=== PATIENT | female | born 1945 | race Caucasian/White ===

== ENCOUNTER → 2017-03-11 | Outpatient (REF) | payer MEDICARE ==
[2017-03-11 16:39] LABS: ALBUMIN/GLOBULIN RATIO 1.29 (1.00-1.93); ALKALINE PHOSPHATASE 76 U/L (45-117); ALT/SGPT 24 U/L (12-78); ANION GAP 7 MEQ/L (8-16); AST/SGOT 15 U/L (15-37); BILIRUBIN,TOTAL 0.5 MG/DL (0.2-1.0); BLOOD UREA NITROGEN 16 MG/DL (7-18); CARBON DIOXIDE LEVEL 29 MEQ/L (21-32); CHLORIDE LEVEL 103 MEQ/L (98-107); CHOLESTEROL LEVEL 194 MG/DL (<200); CREATININE FOR GFR 0.97 MG/DL (0.55-1.02); GLOMERULAR FILTRATION RATE > 60.0 (>39); GLUCOSE, FASTING 96 MG/DL (83-110); SODIUM LEVEL 139 MEQ/L (136-145); TOTAL PROTEIN 7.1 GM/DL (6.4-8.2); TRIGLYCERIDES LEVEL 135 MG/DL (<150)
== END ==
LOC: M SFHCLACO 08:16
PROVIDERS: ATTEND Physician Assistant
DX: E78.2 Mixed hyperlipidemia (principal); K21.9 Gastro-esophageal reflux disease without esophagitis; E55.9 Vitamin D deficiency, unspecified

== ENCOUNTER → 2017-04-30 | Outpatient (CLI) | payer MEDICARE ==
--- NOTE | 2017-04-30 12:46 | REPMRS ---
Patient History The patient states she has not had a clinical breast exam in over a year. Patient is postmenopausal and is nulliparous. Family history of breast cancer in sister at age 79, prostate cancer in brother at age 60, and colorectal cancer in brother at age 60. Took hormonal contraceptives for 19 years. Digital Woman Screen Mammo: April 30, 2017 - Exam #: [id number] Bilateral CC and MLO view(s) were taken. Technologist: Raquel Adams, Technologist Prior study comparison: March 31, 2016, digital woman screen mammo performed at [facility]. April 08, 2015, digital woman screen mammo performed at [facility]. May 11, 2013, bilateral bilat screen digital mammo, performed at [facility] ([facility] FINDINGS: There are scattered fibroglandular densities. There has been no change in the appearance of the mammogram from the prior studies. There is a mild amount of scattered fibroglandular density which is fairly symmetric. There is no interval development of dominant mass, architectural distortion, or clustered microcalcification suggestive of malignancy. ASSESSMENT: BI-RADS/ACR category 1 mammogram. Negative. Recommendation Routine screening mammogram in 1 year (for women over age 40). This mammogram was interpreted with the aid of an FDA-approved computer-aided dectection system. Electronically Signed By: Aidan Mcknight MD 04/30/17 [id number]
--- NOTE | 2017-05-03 10:35 | DEXA ---
AP SPINE L1 - L4 1.218 0.2 1.9 LT FEMUR TOTAL 0.828 -1.4 0.1 RT FEMUR TOTAL 0.805 -1.6 0.0 TOTAL BODY TOTAL OTHER DUAL FEMUR FRAX* ASSESSMENT Risk factors: Premature menopause, tobacco use. 10 year probability of fracture Major osteoporotic fracture 13.7 % Hip fracture 4.8 % COMMENTS: Normal bone densitometry of the spine. There is low bone density of the hips. The density of the spine is increased 12.2% since the initial exam on 06/2001. The spine density has decreased 0.2% since the most recent exam on 03/2015. The density of the left hip has increased 4.2% since the initial exam on 06/2001. The density of the left hip has increased 1.5% since the most recent exam on 2014. The density of the right hip has increased 4.4% since the initial exam on 2000. The density of the right hip has increased 1.6% since the most recent exam on 2014. FOLLOW-UP: Recommendation for the next bone density exam: 2 years. YELENA
== END ==
LOC: M WHC 09:48
PROVIDERS: ATTEND Physician Assistant
DX: Z12.31 Encounter for screening mammogram for malignant neoplasm of breast (principal); R93.7 Abnormal findings on diagnostic imaging of other parts of musculoskeletal system; Z78.0 Asymptomatic menopausal state; Z92.0 Personal history of contraception
CPT/HCPCS: 77080; G0202